=== PATIENT | female | born 1990 | race Asian ===

== ENCOUNTER 2020-08-06 18:33 | Emergency (ER) | payer MEDICAID ==
[~2020-08-06] VITALS: Ht 167.6 cm; Wt 73.0 kg
[2020-08-06] MEDS ORDERED: SODIUM CHLORIDE 0.9% 1,000 ML IV ONE (18:45)
[2020-08-06 19:22] LABS: BASOPHILS % 0.5 % (0.0-2.0); EOSINOPHILS % 1.9 % (0.0-5.0); HEMATOCRIT. 44.4 % (36.0-48.0); HEMOGLOBIN. 14.9 g/dL (12.0-16.0); LYMPHOCYTES % 25.9 % (20.0-50.0); MEAN CORPUSCULAR HEMOGLOBIN 28.7 pg (28.0-32.0); MEAN CORPUSCULAR VOLUME 85.6 fL (81.0-99.0); MEAN PLATELET VOLUME 7.8 fl (7.4-10.4); MONOCYTES % 7.5 % (2.0-8.0); NEUTROPHILS % 64.2 % (40.0-76.0); PLATELET 186 x1000/uL (130-400); RED BLOOD CELL COUNT 5.19 mill/uL (4.2-5.4); RED CELL DISTRIBUTION WIDTH 17.4 % (11.6-14.6)
[2020-08-06 19:34] LABS: CHLORIDE 103 mEq/L (98-107)
[2020-08-06 19:38] LABS: HCG SCREEN NEGATIVE
[2020-08-06] MEDS ORDERED: ACETAMINOPHEN 325MG TABLET PO ONE (22:00)
[2020-08-06 22:18] VITALS: BP 95/59
== END 2020-08-06 22:19 | disposition home or self-care (01) ==
LOC: ER 19:08
DX: R55 Syncope and collapse (principal); I42.9 Cardiomyopathy, unspecified
CPT/HCPCS: 36415; 71045; 80053; 83880; 84484; 84703; 85025; 93005; 96360; 96361; 99285; J7030